=== PATIENT | female | born 1950 | race Caucasian/White ===

== ENCOUNTER 2022-11-02 03:30 | Inpatient (IN) | payer OTHER ==
[2022-11-02 04:33] VITALS: BMI 18.5
[2022-11-02] MEDS ORDERED: Furosemide 40 MG/4 ML VIAL SLOW IVP SCH (05:30)
[2022-11-02] MEDS ORDERED: Potassium Chloride 20 MEQ TAB PO SCH (05:30)
[2022-11-02] MEDS ORDERED: Loratadine 10 MG TAB PO PRN (05:31)
[2022-11-02] MEDS ORDERED: Acetaminophen 325 MG TAB PO PRN (05:31)
[2022-11-02] MEDS: Levothyroxine Sodium 75 MCG TAB PO SCH (06:22)
[2022-11-02] MEDS: Levothyroxine Sodium 100 MCG TAB PO SCH (06:22)
[2022-11-02 06:25] LABS: SARS-CoV-2 NAA Rapid Test Not Detected (NotDetected)
[2022-11-02 06:39] LABS: #Eosinphils 0.1 10x3/uL (0.0-0.5); #Monocytes 0.5 10x3/uL (0.0-1.1); #Neutrophils 5.3 10x3/uL (1.5-8.4); %Basophils 0.4 % (0.0-2.0); %Eosinophils 0.7 % (0.0-6.0); %Lymphocytes 11.5 % (18.0-47.0); %Neutrophils 78.5 % (40.0-75.0); Hemoglobin 12.1 g/dL (12.0-15.5); Mean Corpuscular HGB CONC 31.3 g/dL (32.0-36.0); Mean Corpuscular Hemoglobin 28.5 pg (27.0-33.0); Mean Corpuscular Volume 91.3 fl (81.6-98.3); Mean Platelet Volume 10.1 fl (7.4-10.4); Platelet Count 317 10x3/uL (150-450); RBC Distribution Width 16.1 % (11.5-14.5); Red Blood Cell (RBC) Count 4.24 10x6/uL (3.90-5.03); White Blood Cell (WBC) Count 6.7 10x3/uL (3.5-10.5)
[2022-11-02 06:49] LABS: Anion Gap 16 mmol/L (10-20); BUN (Urea Nitrogen) 7 mg/dL (9.8-20.1); Calc. Creatinine Clearance 52 mL/min (70-130); Calcium 8.3 mg/dL (7.8-10.44); Carbon Dioxide 21 mmol/L (23-31); Chloride 106 mmol/L (98-107); Estimated GFR 93; Glucose 85 mg/dL (83-110); Magnesium 1.5 mg/dL (1.6-2.6); Potassium 3.3 mmol/L (3.5-5.1); Sodium 140 mmol/L (136-145)
[2022-11-02 06:53] LABS: Troponin I 0.094 ng/mL (< 0.028)
[2022-11-02] MEDS ORDERED: Floranex 1 GM Packet PO SCH (09:00)
[2022-11-02] MEDS ORDERED: Non-Formulary Medication 1 EACH (Levothyroxine Sodium [Levothyroxine] 175 MCG Capsule) PO SCH (09:00)
[2022-11-02] MEDS ORDERED: FEXOFENADINE HCL 60 MG PO SCH (09:00)
[2022-11-02] MEDS ORDERED: Fidaxomicin 200 MG TAB PO SCH (09:00)
[2022-11-02 09:36] LABS: Troponin I 0.089 ng/mL (< 0.028)
[2022-11-02] MEDS: Calcium Carbonate 600 MG + Vit D TAB PO SCH (12:49)
[2022-11-02] MEDS: Clopidogrel Bisulfate 75 MG TAB PO SCH (12:49)
[2022-11-02] MEDS: Loratadine 10 MG TAB PO SCH (12:49)
[2022-11-02] MEDS: Atenolol 25 MG TAB PO SCH (12:50)
[2022-11-02] MEDS: Multivit, Therapeutic 1 TAB PO SCH (12:50)
[2022-11-02] MEDS: Aspirin 81 mg Enteric Coated Tablet PO SCH (12:50)
[2022-11-02] MEDS: Cholestyramine/Aspartame 4 gm Packet PO SCH (12:50)
[2022-11-02] MEDS: Floranex 1 GM Packet PO SCH (12:51)
[2022-11-02] MEDS: Fidaxomicin 200 MG TAB PO SCH ×2 (12:51→21:05)
[2022-11-02] MEDS: Valsartan 80 MG TAB PO SCH (12:52)
[2022-11-02] MEDS: Oxybutynin ER 5 MG TAB PO SCH (13:40)
[2022-11-02] MEDS: Montelukast Sodium 10 mg Tablet PO SCH (21:05)
[2022-11-02] MEDS: Pramipexole Di-HCl 0.25 MG TAB PO SCH (21:05)
[2022-11-02] MEDS: Simvastatin 10 MG TAB PO SCH (21:06)
[2022-11-02] MEDS: Famotidine 20 MG TAB PO SCH (21:06)
[2022-11-02] MEDS: Oxybutynin 5 MG TAB PO SCH (21:06)
[2022-11-02] MEDS: Cyclobenzaprine 10 MG TAB PO PRN (21:06)
[2022-11-03] MEDS ORDERED: traMADol HCl 50 MG TAB PO SCH ×2 (01:30→10:15)
[2022-11-03] MEDS: Levothyroxine Sodium 100 MCG TAB PO SCH (06:27)
[2022-11-03] MEDS: Levothyroxine Sodium 75 MCG TAB PO SCH (06:27)
[2022-11-03] MEDS ORDERED: Electrolyte Replacement Protocol 1 EACH FS SCH (07:15)
[2022-11-03] MEDS ORDERED: Potassium Chloride 20 MEQ TAB PO SCH (08:00)
[2022-11-03] MEDS ORDERED: Magnesium 2 GM/50 ML(in water) 2 GM in Premix Bag 1 BAG IVPB SCH (08:00)
[2022-11-03 08:52] LABS: #Eosinphils 0.1 10x3/uL (0.0-0.5); #Monocytes 0.8 10x3/uL (0.0-1.1); #Neutrophils 4.4 10x3/uL (1.5-8.4); %Basophils 0.6 % (0.0-2.0); %Eosinophils 1.3 % (0.0-6.0); %Lymphocytes 20.2 % (18.0-47.0); %Monocytes 12.3 % (0.0-10.0); %Neutrophils 64.6 % (40.0-75.0); Hemoglobin 12.2 g/dL (12.0-15.5); Mean Corpuscular HGB CONC 31.5 g/dL (32.0-36.0); Mean Corpuscular Hemoglobin 28.6 pg (27.0-33.0); Mean Corpuscular Volume 90.6 fl (81.6-98.3); Mean Platelet Volume 9.9 fl (7.4-10.4); Platelet Count 347 10x3/uL (150-450); Red Blood Cell (RBC) Count 4.27 10x6/uL (3.90-5.03); White Blood Cell (WBC) Count 6.8 10x3/uL (3.5-10.5)
[2022-11-03 09:01] LABS: Anion Gap 12 mmol/L (10-20); BUN (Urea Nitrogen) 10 mg/dL (9.8-20.1); Calc. Creatinine Clearance 48 mL/min (70-130); Calcium 8.9 mg/dL (7.8-10.44); Carbon Dioxide 25 mmol/L (23-31); Chloride 105 mmol/L (98-107); Estimated GFR 89; Glucose 98 mg/dL (83-110); Sodium 138 mmol/L (136-145)
[2022-11-03] MEDS: Aspirin 81 mg Enteric Coated Tablet PO SCH (10:41)
[2022-11-03] MEDS: Cyclobenzaprine 10 MG TAB PO PRN (10:41)
[2022-11-03] MEDS: Clopidogrel Bisulfate 75 MG TAB PO SCH (10:41)
[2022-11-03] MEDS: Famotidine 20 MG TAB PO SCH ×2 (10:42→20:58)
[2022-11-03] MEDS: Calcium Carbonate 600 MG + Vit D TAB PO SCH (10:42)
[2022-11-03] MEDS: Loratadine 10 MG TAB PO SCH (10:42)
[2022-11-03] MEDS: Atenolol 25 MG TAB PO SCH (10:42)
[2022-11-03] MEDS: Fidaxomicin 200 MG TAB PO SCH ×2 (10:45→21:01)
[2022-11-03] MEDS ORDERED: Furosemide 20 MG TAB PO SCH (11:00)
[2022-11-03] MEDS: Multivit, Therapeutic 1 TAB PO SCH (11:02)
[2022-11-03] MEDS: Oxybutynin ER 5 MG TAB PO SCH (11:02)
[2022-11-03] MEDS: Cholestyramine/Aspartame 4 gm Packet PO SCH (11:03)
[2022-11-03] MEDS: Valsartan 80 MG TAB PO SCH (11:03)
[2022-11-03] MEDS ORDERED: Spironolactone 25 MG TAB PO SCH (13:00)
[2022-11-03 13:37] LABS: Potassium 5.1 mmol/L (3.5-5.1)
[2022-11-03 16:52] LABS: Potassium 4.9 mmol/L (3.5-5.1)
[2022-11-03] MEDS: Floranex 1 GM Packet PO SCH (17:38)
[2022-11-03] MEDS: Montelukast Sodium 10 mg Tablet PO SCH (20:58)
[2022-11-03] MEDS: Oxybutynin 5 MG TAB PO SCH (20:58)
[2022-11-03] MEDS: Pramipexole Di-HCl 0.25 MG TAB PO SCH (20:59)
[2022-11-03] MEDS: traMADol HCl 50 MG TAB PO SCH (21:00)
[2022-11-03] MEDS: Simvastatin 10 MG TAB PO SCH (21:00)
[2022-11-04 04:56] LABS: Phosphorus 3.4 mg/dL (2.3-4.7)
[2022-11-04 04:57] LABS: Anion Gap 14 mmol/L (10-20); BUN (Urea Nitrogen) 15 mg/dL (9.8-20.1); Calc. Creatinine Clearance 43 mL/min (70-130); Calcium 9.3 mg/dL (7.8-10.44); Carbon Dioxide 26 mmol/L (23-31); Chloride 102 mmol/L (98-107); Estimated GFR 77; Glucose 91 mg/dL (83-110); Potassium 4.5 mmol/L (3.5-5.1); Sodium 137 mmol/L (136-145)
[2022-11-04] MEDS: Levothyroxine Sodium 75 MCG TAB PO SCH (05:34)
[2022-11-04] MEDS: Levothyroxine Sodium 100 MCG TAB PO SCH (05:34)
[2022-11-04] MEDS ORDERED: Spironolactone 25 MG TAB PO SCH (08:00)
[2022-11-04] MEDS ORDERED: Magnesium 2 GM/50 ML(in water) 2 GM in Premix Bag 1 BAG IVPB SCH (08:00)
[2022-11-04 08:24] VITALS: TEMP 97.9
[2022-11-04] MEDS ORDERED: Furosemide 20 MG TAB PO SCH (09:00)
[2022-11-04] MEDS: traMADol HCl 50 MG TAB PO SCH (11:04)
[2022-11-04] MEDS: Atenolol 25 MG TAB PO SCH (11:06)
[2022-11-04] MEDS: Calcium Carbonate 600 MG + Vit D TAB PO SCH (11:06)
[2022-11-04] MEDS: Aspirin 81 mg Enteric Coated Tablet PO SCH (11:07)
[2022-11-04] MEDS: Multivit, Therapeutic 1 TAB PO SCH (11:07)
[2022-11-04] MEDS: Clopidogrel Bisulfate 75 MG TAB PO SCH (11:07)
[2022-11-04] MEDS: Loratadine 10 MG TAB PO SCH (11:07)
[2022-11-04] MEDS: Fidaxomicin 200 MG TAB PO SCH (11:08)
[2022-11-04] MEDS: Cholestyramine/Aspartame 4 gm Packet PO SCH (11:09)
[2022-11-04] MEDS: Valsartan 80 MG TAB PO SCH (11:10)
[2022-11-04] MEDS: Oxybutynin ER 5 MG TAB PO SCH (11:13)
[2022-11-04 12:11] VITALS: BP 138/68
[2022-11-04] MEDS ORDERED: Famotidine 20 MG TAB PO SCH (21:00)
== END 2022-11-04 17:44 | DRG 291 ==
LOC: CSHTELE 03:30
PROVIDERS: ADMIT Family Medicine; ATTEND Internal Medicine
DX: I11.0 Hypertensive heart disease with heart failure (principal); E43 Unspecified severe protein-calorie malnutrition; I50.23 Acute on chronic systolic (congestive) heart failure; R64 Cachexia; A04.72 Enterocolitis due to Clostridium difficile, not specified as recurrent; Z68.1 Body mass index [BMI] 19.9 or less, adult; J98.11 Atelectasis; I25.10 Atherosclerotic heart disease of native coronary artery without angina pectoris; I73.9 Peripheral vascular disease, unspecified; E78.5 Hyperlipidemia, unspecified; R62.7 Adult failure to thrive; E03.9 Hypothyroidism, unspecified; K22.4 Dyskinesia of esophagus; I16.0 Hypertensive urgency; K21.9 Gastro-esophageal reflux disease without esophagitis; J30.2 Other seasonal allergic rhinitis; Z96.612 Presence of left artificial shoulder joint; Z20.822 Contact with and (suspected) exposure to COVID-19; Z88.8 Allergy status to other drugs, medicaments and biological substances; Z79.890 Hormone replacement therapy; Z95.5 Presence of coronary angioplasty implant and graft; Z79.899 Other long term (current) drug therapy; Z90.49 Acquired absence of other specified parts of digestive tract; Z90.710 Acquired absence of both cervix and uterus; Z98.51 Tubal ligation status; Z82.49 Family history of ischemic heart disease and other diseases of the circulatory system; Z98.890 Other specified postprocedural states; Z87.74 Personal history of (corrected) congenital malformations of heart and circulatory system; Z79.02 Long term (current) use of antithrombotics/antiplatelets
CPT/HCPCS: 36415; 36416; 80048; 83735; 84100; 84443; 84484; 85025; 93005; 93010; 93306; J1650; J1940; J3475; U0002